=== PATIENT | male | born 1960 | race Caucasian/White ===

== ENCOUNTER 2016-11-06 15:08 | Emergency (ER) | payer MEDICAID ==
[~2016-11-06] VITALS: Ht 175.3 cm; Wt 128.0 kg
[2016-11-06 15:50] VITALS: Ht 175.3 cm; Wt 128.0 kg
[2016-11-06] MEDS ORDERED: CEPH-443 PO (16:10)
[2016-11-06] MEDS ORDERED: BACTDS PO (16:10)
--- NOTE | 2016-11-06 16:18 | ERD ---
ER Documentation Chief Complaint Date/Time DATE: 11/06/16 TIME: 16:14 Chief Complaint abcess on buttocks, first time HPI 55 year old male comes in with a left upper buttock which he noticed today. He denies fever. He has noted localized redness only. ROS All systems reviewed and are negative except as per history of present illness. Medications Home Meds Active Scripts Sulfamethoxazole-Trimethoprim* (Bactrim* DS) 800-160 Mg Tab, 1 TAB PO BID for 7 Days, TAB Prov:ZANE ESPINAL PA-C 11/06/16 Cephalexin* (Keflex*) 500 Mg Capsule, 500 MG PO QID for 7 Days, CAP Prov:ZANE ESPINAL PA-C 11/06/16 Physical Exam Vitals Vital Signs Date Time Temp Pulse Resp B/P Pulse Ox O2 Delivery O2 Flow Rate FiO2 11/06/16 15:50 98.5 80 20 133/73 96 Physical Exam General: Well-developed, well-nourished. The patient appears in no acute distress. HEENT: Head is normocephalic, atraumatic. No scleral icterus. Neck: Supple. Nontender. Lungs: Clear to auscultation. Normal air movement. Heart: Regular rate and rhythm. S1 and S2 are normal. No murmurs, gallops, or rubs. Abdomen: Nondistended. Extremities: No clubbing or cyanosis. Moving extremities x 4. No weakness. Neurologic: Alert and oriented 3. No focal deficits. Normal speech and gait. Skin: Left upper buttock has a 1 cm area of induration, no fluctuation, and no vesicles. No drainage. Procedures/MDM 55-year-old male comes with an abscess 1 day on the left upper buttock. It is indurated, localized without surrounding cellulitic changes. Patient will be given antibiotics for coverage for staph, was advised to do warm compresses at home, was given ER return precautions. If it gets larger, becomes more fluctuant incision and drainage was advised for future the future. Departure Diagnosis: Primary Impression: Abscess Condition: Good Patient Instructions: Abscess, Antiobiotic Treatment Only Additional Instructions: Wound check in 2 days. Return sooner for any worsening or new symptoms. ZANE ESPINAL PA-C Nov 06, 2016 16:18
== END 2016-11-06 16:40 | disposition home or self-care (01) ==
LOC: FTE 15:08
DX: L02.31 Cutaneous abscess of buttock (principal)
CPT/HCPCS: 99284